=== PATIENT | female | born 1995 | race American Indian/Alaskan Native ===

== ENCOUNTER 2016-11-29 01:00 | Emergency (ER) | payer MEDICAID | END 2016-11-29 02:08 | disposition left against medical advice (07) | LOC: ED 01:00 | DX: R42 Dizziness and giddiness (principal); Z53.21 Procedure and treatment not carried out due to patient leaving prior to being seen by health care provider ==

== ENCOUNTER 2017-01-11 20:38 | Emergency (ER) | payer MEDICAID ==
--- NOTE | 2017-01-11 22:14 | Emergency Department Report ---
Chief Complaint: GI Bleed Stated Complaint: RECTAL BLEED Time Seen by Provider: 01/11/17 22:06 - HPI History of Present Illness: Patient admits to blood in stool x 3 since yesterday, admits to lower abdominal pain that started today. LMP 10/14/16, she admits to being , took a urine test, has not had ultrasound yet. Admits to vomiting x5, denies blood. G3, P2. Admits to chills. Admits to coughing. Denies vaginal bleeding at this time. - ROS Review of Systems: All other systems unremarkable except documentation in HPI - Exam Vital Signs: Vital Signs 01/11/17 21:27 Temperature 97.8 F Pulse Rate 98 H Respiratory 16 Rate Blood Pressure 106/70 O2 Sat by Pulse 100 Oximetry Physical Exam: Gen: Female well-developed and nourished, no apparent distress noted, ambulatory. Cardiovascular: Heart sounds present S1-S2, no murmur, gallop, edema or ectopy noted, 2+ pulses upper and lower extremities Respiratory: Chest symmetry with respirations, lungs clear to auscultate upper and lower lobes, respirations even and unlabored, no rales, rhonchi, crackles noted. Abdomen: bowel sounds present, abdomen is hard, patient is guarding and will not allow palpation Psych: AxOx3, answers questions appropriately, mood full range, affect normal, normal speech and tone. MSE screening note: Focused history and physical exam performed. Due to findings the following was ordered: seen by provider, laboratory studies ordered, and to go to main ED to be seen by physician ED Medical Decision Making - Medical Decision Making seen by provider, laboratory studies ordered, and to go to main ED to be seen by physician ED Disposition for MSE Condition: Stable Referrals: PRIMARY CARE [Primary Care Provider] - 3-5 Days Forms: Accompanied Note
[2017-01-11 22:43] LABS: Basophils % (Auto) 0.8 % (0.0-1.8); Eosinophils % (Auto) 1.8 % (0.0-4.3); Hematocrit 31.5 % (30.3-42.9); Mean Corpuscular HGB Conc 35 % (30-34); Mean Corpuscular Hemoglobin 30 pg (28-32); Mean Corpuscular Volume 87 fl (79-97); Platelet Count 273 K/mm3 (140-440); Red Blood Count 3.63 M/mm3 (3.65-5.03); Red Cell Distribution Width 13.7 % (13.2-15.2); White Blood Count 6.8 K/mm3 (4.5-11.0)
[2017-01-11 22:56] LABS: Partial Thromboplastin Time 25.9 Sec. (24.2-36.6)
[2017-01-11 23:18] LABS: Alanine Aminotransferase 14 units/L (7-56); Albumin 3.5 g/dL (3.9-5); Albumin/Globulin Ratio 1.1 %; Alkaline Phosphatase 44 units/L (35-129); Anion Gap 19 mmol/L; BUN/Creatinine Ratio 16.66; Bilirubin,Total < 0.2 mg/dL (0.1-1.2); Blood Urea Nitrogen 10 mg/dL (7-17); Calcium 8.4 mg/dL (8.4-10.2); Carbon Dioxide 23 mmol/L (22-30); Chloride 101.4 mmol/L (98-107); Glucose 75 mg/dL (65-100); Lipase 20 units/L (13-60); Potassium 4.1 mmol/L (3.6-5.0); Sodium 139 mmol/L (137-145); Total Protein 6.7 g/dL (6.3-8.2)
[2017-01-12 00:05] LABS: Bacteria,Urine 1+ /HPF (Negative); Bilirubin,Urine NEG (Negative); Blood,Urine NEG (Negative); Ketones,Urine TR mg/dL (Negative); Leukocyte Esterase,Urine TR (Negative); Mucus,Urine 2+ /HPF; Nitrite,Urine NEG (Negative); Urobilinogen,Urine < 2.0 mg/dL (<2.0)
--- NOTE | 2017-01-12 10:14 | Ultrasound Report ---
ULTRASOUND OB LESS THAN 14 WEEKS HISTORY: Positive test, abdominal pain. FINDINGS: Transabdominal ultrasound was performed. The uterus measures 12 x 7 x 10 cm. An intrauterine containing a pole and yolk sac is identified. Estimated age on ultrasound is 11 weeks, 1 day. Estimated due date 08/02/17. heart rate measured 163 beats per minute. No subchorionic hemorrhage. The placenta is not confidently identified at this time. Both ovaries are visualized and within normal limits. No cyst or mass. No pelvic fluid collection. IMPRESSION: Viable, single intrauterine as described. No acute abnormality is appreciated.
[2017-01-12] MEDS ORDERED: TYLENOL PO ONE (10:26)
[2017-01-12] MEDS ORDERED: ZOFRAN ODT PO ONE (10:26)
--- NOTE | 2017-01-12 10:27 | Emergency Department Report ---
ED General Adult HPI - General Chief complaint: GI Bleed Stated complaint: RECTAL BLEED Time Seen by Provider: 01/11/17 22:06 Source: patient, RN notes reviewed Mode of arrival: Ambulatory Limitations: No Limitations - History of Present Illness Initial comments: This is a 21-year-old female. She is previously unknown to me. Last menstrual period was in October. She is 3, para 2. . Does not have an CLERK ANALYST doctor. States no care. States she knows she is because of a positive home test. Patient presents to the ER complaining of left lower quadrant abdominal cramping, brown stool mixed with red blood, and sensation of straining to defecate. She also reports painful defecation. She denies vaginal bleeding, irritative and obstructive urinary symptoms. There is no right lower quadrant pain. There is no vaginal bleeding. Positive mild nausea and vomiting. Emesis is yellow. Symptoms have been going on for the past 3 days. They worsen when she attempts to defecate. They decrease with rest. She denies consumption of marijuana and drugs. -: Gradual Location: abdomen Consistency: intermittent Improves with: rest Worsens with: movement Associated Symptoms: nausea/vomiting. denies: chest pain, cough, headaches, loss of appetite, malaise, shortness of breath, syncope, weakness - Related Data Previous Rx's Medication Instructions Recorded Last Taken Type Vit-Fe Fumar-FA [ 1 tab PO QDAY #31 tablet 11/02/15 03/01/16 11 :00 Rx Vitamin] 1 Doxylamine/Pyridoxine HCl 1 each PO QHS PRN #30 tablet. 01/12/17 Unknown Rx [Gucci Cano 10-10 mg Tablet] Vit W-Ca,Fe,FA(<1 mg) 1 each PO QDAY #30 tablet 01/12/17 Unknown Rx [ Vitamins] Allergies Allergy/AdvReac Type Severity Reaction Status Date / Time No Known Allergies Allergy Verified 01/11/17 21:31 ED Review of Systems ROS: Stated complaint: RECTAL BLEED Other details as noted in HPI Constitutional: denies: malaise Eyes: denies: vision change ENT: denies: epistaxis Respiratory: denies: orthopnea Gastrointestinal: abdominal pain, constipation Genitourinary: denies: urgency, dysuria Musculoskeletal: denies: back pain Skin: denies: lesions Neurological: denies: weakness Psychiatric: denies: anxiety, depression ED Past Medical Hx - Past Medical History Previous Medical History?: Yes Hx Hypertension: No Hx Congestive Heart Failure: No Hx Diabetes: No Hx Deep Vein Thrombosis: No Hx Renal Disease: No Hx Sickle Cell Disease: No Hx Seizures: No Hx Asthma: Yes Hx COPD: No Hx HIV: No - Surgical History Past Surgical History?: No - Social History Smoking Status: Never Smoker Substance Use Type: None - Medications Home Medications: Home Medications Medication Instructions Recorded Confirmed Last Taken Type Vit-Fe Fumar-FA [ 1 tab PO QDAY #31 tablet 11/02/15 03/01/16 11:00 Rx Vitamin] 1 Doxylamine/Pyridoxine HCl 1 each PO QHS PRN #30 tablet. 01/12/17 Unknown Rx [Diclegis Dr 10-10 mg Tablet] Vit W-Ca,Fe,FA(<1 mg) 1 each PO QDAY #30 tablet 01/12/17 Unknown Rx [ Vitamins] ED Physical Exam - General Limitations: No Limitations General appearance: alert, in no apparent distress - Head Head exam: Present: atraumatic, normocephalic - Eye Eye exam: Present: normal appearance, EOMI. Absent: nystagmus - ENT ENT exam: Present: normal exam, normal orophraynx, mucous membranes moist, normal external ear exam - Neck Neck exam: Present: normal inspection, full ROM. Absent: tenderness, meningismus - Respiratory Respiratory exam: Present: normal lung sounds bilaterally. Absent: respiratory distress, wheezes, rales, rhonchi, stridor, chest wall tenderness - Cardiovascular Cardiovascular Exam: Present: regular rate, normal rhythm, normal heart sounds. Absent: bradycardia, tachycardia, irregular rhythm, systolic murmur, diastolic murmur, rubs, gallop - GI/Abdominal GI/Abdominal exam: Present: soft, tenderness (there is no right lower quadrant tenderness. There is minimal left lower quadrant discomfort. There is no rebound, guarding or peritoneal signs.), normal bowel sounds. Absent: distended , guarding, rigid - Rectal Rectal exam: Present: normal inspection, normal rectal tone, heme (+) stool, other (there is an anal fissure at 6:00. There is brown stool that is trace guaiac positive. There is no gross blood on rectal examination. During rectal examination, I am escorted by nurse Lorie Xie) - Extremities Exam Extremities exam: Present: normal inspection, full ROM, normal capillary refill. Absent: tenderness, pedal edema, joint swelling, calf tenderness - Back Exam Back exam: Present: normal inspection, full ROM. Absent: tenderness, CVA tenderness (R), CVA tenderness (L), muscle spasm, paraspinal tenderness, vertebral tenderness - Neurological Exam Neurological exam: Present: alert, oriented X3, normal gait, other (Extraocular movements intact. Tongue midline. No facial droop. Facial sensation intact to light touch in the V1, V2, V3 distribution bilaterally. 5 and 5 strength in 4 extremities.. Sensation is intact to light touch in 4 extremities.). Absent : motor sensory deficit - Psychiatric Psychiatric exam: Present: normal affect, normal mood - Skin Skin exam: Present: warm, dry, intact, normal color. Absent: rash ED Course Vital Signs 01/11/17 01/12/17 01/12/17 21:27 08:00 09:08 Temperature 97.8 F Pulse Rate 98 H 77 Respiratory 16 20 16 Rate Blood Pressure 106/70 Blood Pressure 103/44 [Left] O2 Sat by Pulse 100 100 99 Oximetry 01/12/17 12:00 Temperature Pulse Rate 71 Respiratory 16 Rate Blood Pressure Blood Pressure 99/47 [Left] O2 Sat by Pulse 99 Oximetry - Reevaluation(s) Reevaluation #1: 01/12/17 11:48 Differential diagnosis: Anal fissure, constipation, incidental Assessment and plan: 21-year-old female with left lower quadrant discomfort, anal fissure at 6:00, brown stool that is trace guaiac positive. Laboratory studies reviewed and are unremarkable. Hemodynamically stable. CBC within normal limits. No irritative or obstructive urinary symptoms. Patient felt improved after minimal symptomatic therapy. A pelvic ultrasound demonstrated an appropriate viable single intrauterine , with no evidence of subchorionic hemorrhage. The patient was noted by myself and staff to be tolerating liquid feeds. She will be started on vitamins, as needed nausea medication, she is instructed to follow-up with outpatient obstetrics. She can follow-up with gastroenterology on an as-needed basis for her anal fissure. She is instructed on dietary and lifestyle modifications, and how to perform sitz baths. She will be discharged at this time. Return precautions are extensively reviewed. ED Medical Decision Making - Lab Data Result diagrams: 01/11/17 22:23 01/11/17 22:23 Vital Signs 01/11/17 01/12/17 01/12/17 21:27 08:00 09:08 Temperature 97.8 F Pulse Rate 98 H 77 Respiratory 16 20 16 Rate Blood Pressure 106/70 Blood Pressure 103/44 [Left] O2 Sat by Pulse 100 100 99 Oximetry Lab Results 01/11/17 01/11/17 01/11/17 Range/Units 22:23 22:23 22:23 WBC 6.8 (4.5-11.0) K/mm3 RBC 3.63 L (3.65-5.03) M/mm3 Hgb 11.0 (10.1-14.3) gm/dl Hct 31.5 (30.3-42.9) % MCV 87 (79-97) fl MCH 30 (28-32) pg MCHC 35 H (30-34) % RDW 13.7 (13.2-15.2) % Plt Count 273 (140-440) K/mm3 Lymph % (Auto) 30.3 (13.4-35.0) % [place] % (Auto) 11.1 H (0.0-7.3) % Eos % (Auto) 1.8 (0.0-4.3) % Baso % (Auto) 0.8 (0.0-1.8) % Lymph # 2.1 (1.2-5.4) K/mm3 [place] # 0.8 (0.0-0.8) K/mm3 Eos # 0.1 (0.0-0.4) K/mm3 Baso # 0.1 (0.0-0.1) K/mm3 Seg Neutrophils % 56.0 (40.0-70.0) % Seg Neutrophils # 3.8 (1.8-7.7) K/mm3 PT 13.1 (12.2-14.9) Sec. INR 1.00 (0.87-1.13) APTT 25.9 (24.2-36.6) Sec. Sodium 139 (137-145) mmol/L Potassium 4.1 (3.6-5.0) mmol/L Chloride 101.4 (98-107) mmol/L Carbon Dioxide 23 (22-30) mmol/L Anion Gap 19 mmol/L BUN 10 (7-17) mg/dL Creatinine 0.6 L (0.7-1.2) mg/dL Estimated GFR > 60 ml/min BUN/Creatinine Ratio 16.66 % Glucose 75 (65-100) mg/dL Calcium 8.4 (8.4-10.2) mg/dL Total Bilirubin < 0.2 (0.1-1.2) mg/dL AST 14 (5-40) units/L ALT 14 (7-56) units/L Alkaline Phosphatase 44 (35-129) units/L Total Protein 6.7 (6.3-8.2) g/dL Albumin 3.5 L (3.9-5) g/dL Albumin/Globulin Ratio 1.1 % Lipase 20 (13-60) units/L HCG, Qual (Negative) Urine Color (Yellow) Urine Turbidity (Clear) Urine pH (5.0-7.0) Ur Specific [place] (1.003-1.030) Urine Protein (Negative) mg/dL Urine Glucose (UA) (Negative) mg/dL Urine Ketones (Negative) mg/dL Urine Blood (Negative) Urine Nitrite (Negative) Urine Bilirubin (Negative) Urine Urobilinogen (<2.0) mg/dL Ur Leukocyte Esterase (Negative) Urine WBC (Auto) (0.0-6.0) /HPF Urine RBC (Auto) (0.0-6.0) /HPF U Epithel Cells (Auto) (0-13.0) /HPF Urine Bacteria (Auto) (Negative) /HPF Urine Mucus /HPF 01/11/17 01/11/17 Range/Units 22:23 Unknown WBC (4.5-11.0) K/mm3 RBC (3.65-5.03) M/mm3 Hgb (10.1-14.3) gm/dl Hct (30.3-42.9) % MCV (79-97) fl MCH (28-32) pg MCHC (30-34) % RDW (13.2-15.2) % Plt Count (140-440) K/mm3 Lymph % (Auto) (13.4-35.0) % [place] % (Auto) (0.0-7.3) % Eos % (Auto) (0.0-4.3) % Baso % (Auto) (0.0-1.8) % Lymph # (1.2-5.4) K/mm3 [place] # (0.0-0.8) K/mm3 Eos # (0.0-0.4) K/mm3 Baso # (0.0-0.1) K/mm3 Seg Neutrophils % (40.0-70.0) % Seg Neutrophils # (1.8-7.7) K/mm3 PT (12.2-14.9) Sec. INR (0.87-1.13) APTT (24.2-36.6) Sec. Sodium (137-145) mmol/L Potassium (3.6-5.0) mmol/L Chloride (98-107) mmol/L Carbon Dioxide (22-30) mmol/L Anion Gap mmol/L BUN (7-17) mg/dL Creatinine (0.7-1.2) mg/dL Estimated GFR ml/min BUN/Creatinine Ratio % Glucose (65-100) mg/dL Calcium (8.4-10.2) mg/dL Total Bilirubin (0.1-1.2) mg/dL AST (5-40) units/L ALT (7-56) units/L Alkaline Phosphatase (35-129) units/L Total Protein (6.3-8.2) g/dL Albumin (3.9-5) g/dL Albumin/Globulin Ratio % Lipase (13-60) units/L HCG, Qual Positive (Negative) Urine Color Yellow (Yellow) Urine Turbidity Clear (Clear) Urine pH 6.0 (5.0-7.0) Ur Specific [place] 1.033 H (1.003-1.030) Urine Protein 30 mg/dl (Negative) mg/dL Urine Glucose (UA) Neg (Negative) mg/dL Urine Ketones Tr (Negative) mg/dL Urine Blood Neg (Negative) Urine Nitrite Neg (Negative) Urine Bilirubin Neg (Negative) Urine Urobilinogen < 2.0 (<2.0) mg/dL Ur Leukocyte Esterase Tr (Negative) Urine WBC (Auto) 3.0 (0.0-6.0) /HPF Urine RBC (Auto) 2.0 (0.0-6.0) /HPF U Epithel Cells (Auto) 11.0 (0-13.0) /HPF Urine Bacteria (Auto) 1+ (Negative) /HPF Urine Mucus 2+ /HPF - Radiology Data Radiology results: report reviewed, image reviewed Obstetrics ultrasound demonstrates an intrauterine that is 11 weeks and 1 day. heart rate is 163 beats per minutes. There is no subchorionic hemorrhage noted. Critical care attestation.: If time is entered above; I have spent that time in minutes in the direct care of this critically ill patient, excluding procedure time. ED Disposition Clinical Impression: , History of bloody stools Disposition: DISCHARGED TO HOME OR SELFCARE Is pt being admited?: No Does the pt Need Aspirin: No Condition: Stable Instructions: (ED), Anal Fissure (ED) Additional Instructions: Take the vitamins and nausea medication as needed/directed. Follow up as soon as possible with an CLERK ANALYST doctor. Ultrasound today demonstrated that you are 11 weeks . This is almost at the end of the first trimester. Not following up with CLERK ANALYST and timely fashion may result in disability, complicated , loss of . Dr. Fay Montiel is a local snowmaker. Symptoms most likely coming from constipation and anal fissure. Drink 6-8 cups of water a day. Eat plenty of fruits, fibers, vegetables. Follow up with gastroenterology within the next month. Dr. Dandre Montiel is a local camp boss. [facility] has a patient service hotline: 5.557.GO.TO.RICHARD ([phone]) Contacted the hot line to obtain close outpatient appointment. Return to the ER right away with new pain, worsening pain, migration of pain, fevers or chills, intractable nausea or vomiting, inability to tolerate liquid feeds. Prescriptions: Doxylamine/Pyridoxine HCl [Gucci Cano 10-10 mg Tablet] 1 each PO QHS PRN #30 tablet. PRN Reason: Nausea Vit W-Ca,Fe,FA(<1 mg) [ Vitamins] 1 each PO QDAY #30 tablet Referrals: VANNESSA WERNER MD [Primary Care Provider] - 3-5 Days FAY MONTIEL MD [Staff Physician] - 3-5 Days EDMUNDO MONTIEL MD [Staff Physician] - 3-5 Days [facility] [Provider Group] - 3-5 Days [facility] [Provider Group] - 3-5 Days Forms: Accompanied Note
[2017-01-12 12:11] VITALS: BP 99/47
== END 2017-01-12 12:11 | disposition home or self-care (01) ==
LOC: ED 20:38
DX: O26.891 Other specified pregnancy related conditions, first trimester (principal); K92.1 Melena; R10.31 Right lower quadrant pain; R10.32 Left lower quadrant pain; J45.909 Unspecified asthma, uncomplicated; Z3A.11 11 weeks gestation of pregnancy
CPT/HCPCS: 36415; 76801; 80053; 81001; 82271; 83690; 84703; 85025; 85610; 85730; Q0162